=== PATIENT | male | born 1945 | race Caucasian/White ===

== ENCOUNTER 2017-02-13 17:02 | Emergency (ER) | payer MEDICARE ==
[~2017-02-13] VITALS: Ht 172.7 cm; Wt 65.9 kg
[~2017-02-13 17:02] MED LIST: CIPR500T95 PO; INSU100V8 IJ; OXYC-176 PO; PRV40T PO; [UNRECOGNIZED DRUG - CODE] SQ
[2017-02-13 17:23] VITALS: BP 124/61; PULSE 71; RESP 16; O2SAT 100
--- NOTE | 2017-02-13 18:27 | ED.REPORT ---
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 He admits that when he gets cut, he bleeds a lot afterwards, but it does eventually resolve itself. He denies feeling ill at all. Other denied symptoms include SOB , lightheadedness, chest pain, losing weight, fever, chills, diaphoresis, melena , rectal bleeding, hematochezia, or hematemesis. He denies any history of cancer , or feeling sick recently. Nursing Notes Stated Complaint: LOW BLOOD COUNT Chief Complaint: General Complaint Nursing Notes Reviewed: Yes Allergies: Uncoded Allergies: NKA (Allergy, Unknown, 05/18/08) NKDA (Allergy, Unknown, 05/18/08) Scheduled Ciprofloxacin (Cipro) 500 Mg Tablet 500 MG PO BID Insulin NPH-Expunged Drug, Do Not Renew! (Btkirfw-S-Opimqodg Drug, Do Not Renew! ) 100 Unit/Ml Unit 7 U SQ BID Insulin Regular-Expunged Drug, Do Not Renew! (Humulin R-Expunged Drug, Do Not Renew!) 100 U/Ml Vial 100 U IJ sliding scale Oxycodone/APAP-Expunged Drug, Do Not Renew! (Percocet 5/325-Expunged Drug, Do Not Renew!) 1 Each Tablet 1-2 TAB PO Q4 Pravastatin-Expunged Drug, Do Not Renew! (Pravachol-Expunged Drug, Do Not Renew! ) 40 Mg Tablet 40 MG PO DAILY General Time Seen by MD: 18:45 Chief Complaint Other (low blood count) Hx Obtained From: Patient Arrived By: Walk-in Sudden in Onset?: Yes Onset Occurred: Just prior to arrival Recent Healthcare: No recent hospitalization, Recent doctor visit Similar Sx Previous: No Past Medical History Past Medical History DM Right inguinal hernia Kidney stones Past Surgical History Appendectomy Smoking History Unknown if Ever Smoker Ambulatory Status Independent Review of Systems denies melena, or rectal bleeding Full Review of Systems Constitutional: Denies: Chills, Fever, Recent wt loss Respiratory: Denies: Shortness of breath GI: Denies: Hematemesis, Hematochezia Skin: Denies Diaphoresis Neurologic: Denies: Lightheaded Complete sys rev & neg: except as marked. Physical Exam Vital Signs Vital Signs Date Time Temp Pulse Resp B/P Pulse Ox O2 Delivery O2 Flow Rate FiO2 02/13/17 23:10 36.6 61 19 02/13/17 21:35 36.4 59 13 02/13/17 21:12 57 15 125/59 100 Room Air 02/13/17 17:23 36.9 71 16 124/61 100 Room Air Initial VS: Reviewed Head / Eyes: Atraumatic, Normocephalic Neck: Supple, Full range of motion Respiratory: Breath sounds normal, No respiratory distress Abdomen / GI: Soft, Non-tender Lymphatic: No lymphadenopathy Skin: Warm, Dry Neurologic: Alert, Oriented Psychiatric: Mood/affect normal, Behavior normal General/Constitutional: Awake, Alert, No acute distress Head / Eyes: Atraumatic, Normocephalic Hard of hearing Cardiovascular: Heart rate NL, Regular rhythm Heart Sounds / Murmur: Positive: Murmur present... (2/6 systolic murmur left lower sternal border) Rectum / Perineum: Atraumatic rectal guaiac negative prostate smooth no stool in vault Interpretation & Diagnostics Lab Results Interpretation Result Diagram: 02/13/17182002/13/17 182 Test 02/13/17 18:21 White Blood Count 1.4th/mm3 (3.8-10.1) Red Blood Count 2.58mil/mm3 (4.40-5.80) Hemoglobin 6.7g/dL (13.8-17.2) Hematocrit 23.8% (41.0-50.0) Mean Corpuscular Volume 92.2fL (81-100) Mean Corpuscular Hemoglobin 26.0pg (27.0-35.0) Mean Corpuscular Hemoglobin Concent 28.2% (32.0-37.0) Red Cell Distribution Width 19.0% (12.3-15.4) Platelet Count 114bil/L (150-400) Neutrophils (%) (Auto) 34.3% (40-74) Lymphocytes (%) (Auto) 53.1% (14-46) Monocytes (%) (Auto) 11.2% (4-12) Eosinophils (%) (Auto) 0% (0-5) Basophils (%) (Auto) 0.7% (0-3) Sodium Level 139mEq/L (134-144) Potassium Level 5.1mEq/L (3.5-5.2) Chloride Level 102mEq/L (97-108) Carbon Dioxide Level 23mmol/L (18-29) Blood Urea Nitrogen 27mg/dL (8-27) Creatinine 0.95mg/dL (0.76-1.27) Estimat Glomerular Filtration Rate 83mL/min (>59) Glucose Level 248mg/dL (60-99) Calcium Level 9.1mg/dL (8.5-10.1) Total Bilirubin 0.6mg/dL (0.0-1.2) Aspartate Amino Transf (AST/SGOT) 23U/L (0-50) Alanine Aminotransferase (ALT/SGPT) 16U/L (0-44) Alkaline Phosphatase 69U/L (25-160) Total Protein 7.1g/dL (6.4-8.4) Albumin 4.2g/dL (3.4-5.0) Hold Ellis Top Tube Received (Received) Re-Eval/Medical Decision Time of Eval: 19:14 Re-Evaluation/Progress Note: Patient rechecked. Informed of low blood count. Recommends calling doctors at [facility] to come up with plan and potential transfusion. Time of Eval: 23:08 Re-Evaluation/Progress Note: Patient rechecked. Discussed plan to discharge. All plans addressed at this time. Consultation : Referral / Consult Name: Aishwarya Combs MD Consulted With: Hydroelectric Plant Operator Call Returned at: 19:39 Lead Handler: Agrees with eval, Agrees with plan Note: Discussed patient and plan to give transfusion. Agrees with plan. Counseled Regarding: Diagnosis, Lab results Discharge & Departure Primary Impression: Pancytopenia Disposition: Home Additional Instructions: Emergency department evaluation today included interview, examination and labs. We confirmed that blood counts of all components i.e. red cells, white cells, platelets are low. These values are not critical that this is indicative of a serious condition that requires further investigation. Case was discussed with a blood disease specialist, at his recommendation 1 unit of red blood cells was transfused. The hematology office will call you tomorrow to arrange follow-up. Them if you do not hear from them tomorrow, call us if you have any difficulty in getting follow-up with hematology. Follow-up with your primary care doctor GEORGES as well. Return to emergency department immediately for chest pain shortness of breath fevers shaking chills and vomiting blood or black tarry stool or passing bright red blood rectally. Continue previous home medications. Referrals: Yaquelin Pendleton MD (PCP) Aishwarya Combs MD Attestation Portions of this note were transcribed by Antoni Rojas and Broderick Munoz. I, Dr. Beckham personally performed the history, physical exam and medical decision- making; I reviewed and confirmed the accuracy of the information in the transcribed note. Signed by: Mena Centeno, 02/13/2017 copies to: Yaquelin Pendleton MD, Donald L MD Feb 13, 2017 18:27 Feb 13, 2017 18:47
[2017-02-13 18:42] LABS: BASOPHILS % (AUTO) 0.7 % (0-3); EOSINOPHILS % (AUTO) 0 % (0-5); MONOCYTES % (AUTO) 11.2 % (4-12); Mean Corpuscular Volume 92.2 fL (81-100); NEUTROPHILS % (AUTO) 34.3 % (40-74); Platelet Count 114 bil/L (150-400)
[2017-02-13 21:12] VITALS: BP 125/59; PULSE 57; RESP 15; O2SAT 100
[2017-02-13] MEDS ORDERED: 0.9% Sodium Chloride 250 ML ONE (21:27)
[2017-02-13 21:35] VITALS: BP 136/64; PULSE 59; RESP 13
[2017-02-13 23:10] VITALS: BP 117/61; PULSE 61; RESP 19
== END 2017-02-13 23:18 | disposition home or self-care (01) ==
LOC: SED 17:02
DX: D61.818 Other pancytopenia (principal); E11.9 Type 2 diabetes mellitus without complications; Z87.442 Personal history of urinary calculi; Z90.89 Acquired absence of other organs; Z87.828 Personal history of other (healed) physical injury and trauma; Z79.4 Long term (current) use of insulin
CPT/HCPCS: 36415; 36430; 80053; 85025; 86922; 96360; 99285; J7050; P9021